=== PATIENT | male | born 1985 | race African-American/Black ===

== ENCOUNTER 2020-05-01 15:59 | Day surgery (SDC) | payer SELFPAY ==
[~2020-05-01 15:59] MED LIST: Acetaminophen 500 MG TAB ONE; Dexamethasone 20 MG/5 ML VIAL ONE; Glycopyrrolate 0.2 MG/ML 5 ML SYRINGE ONE; Ketorolac Tromethamine 30 MG/ML VIAL ONE; Lidocaine 1% PF 5 ML VIAL ONE; Metoclopramide HCl 10 MG/2 ML VIAL ONE; Ondansetron PF 4 MG/2 ML Vial ONE; PROPOFOL 200 MG/20 ML VIAL ONE; Rocuronium Bromide 10 MG/ML (10ML VIAL) ONE; Succinylcholine 200 MG/10 ml SYRINGE FS ONE
[2020-05-01] MEDS ORDERED: Bupivacaine PF 0.5% 30 ML VIAL ONE (16:05)
[2020-05-01] MEDS ORDERED: Lidocaine 1% w/Epinephrine 1:100K 20 ML VIAL ONE (16:05)
[2020-05-01] MEDS ORDERED: Fentanyl 100 MCG/2 ML VIAL ONE ×2 (16:09→17:09)
[2020-05-01] MEDS ORDERED: Midazolam HCl 2 mg/2 ml Vial ONE (16:09)
[2020-05-01] MEDS ORDERED: Sodium Chloride 0.9% 100 ML ONE (16:15)
[2020-05-01] MEDS ORDERED: Piperacillin/Tazobactam 3.375 GM VIAL ONE (16:15)
[2020-05-01] MEDS ORDERED: SUGAMMADEX SODIUM 200 MG/2 ML VIAL ONE (17:31)
--- NOTE | 2020-05-01 17:54 | HP ---
HISTORY OF PRESENT ILLNESS: Mr. Shahid is a 35-year-old black male, works in construction, has had upper abdominal pain, onset yesterday, presenting to [facility], evaluated there, noting to have an exam suggestive of appendicitis. Evaluated, COVID negative. White count 4.9, hemoglobin 15.2. Sodium 141, potassium 3.7, BUN 6, creatinine 0.9, glucose 133. Stent to [facility] for CAT scan, demonstrating changes consistent with appendicitis (Signature CAT scan is not functioning). ALLERGIES: NONE. SOCIAL HISTORY: Tobacco, none. Alcohol, rarely. MEDICATIONS: Metformin. PAST SURGICAL HISTORY: Noncontributory. REVIEW OF SYSTEMS: Noncontributory. FAMILY HISTORY: Noncontributory. PHYSICAL EXAMINATION: VITAL SIGNS: Blood pressure 140/74, respiratory rate 18, heart rate 74. HEAD, EARS, EYES, NOSE, AND THROAT: Unremarkable. LUNGS: Clear to auscultation. CARDIAC: Regular rate and rhythm without murmur or gallop. ABDOMEN: Soft, tenderness in right lower quadrant, guarding and rebound. EXTREMITIES: Unremarkable. No edema. NEUROLOGICAL: Intact. ASSESSMENT AND PLAN: 1. Appendicitis. We have recommended laparoscopic video appendectomy. Risks and benefits discussed. He consents. 2. Type 2 diabetes mellitus. He has intentionally lost 40 pounds and no longer takes insulin. Diabetes is better controlled. Job ID: [id number]
--- NOTE | 2020-05-01 18:04 | OP ---
DATE OF PROCEDURE: 05/01/2020 PREOPERATIVE DIAGNOSIS: Acute appendicitis. POSTOPERATIVE DIAGNOSIS: Acute appendicitis. PROCEDURE PERFORMED: Laparoscopic video appendectomy. ANESTHESIA: General, local 0.5% Marcaine 30 mL mixed with 1% Xylocaine with epinephrine 20 mL. DESCRIPTION OF PROCEDURE: The patient was taken to the operating room, where under general anesthesia, abdomen was prepared with ChloraPrep and draped in routine fashion. Local anesthetic was infiltrated in the skin and subcutaneous tissue about the operative site. Infraumbilical incision made, pneumoperitoneum to 15 mmHg was obtained with a Veress needle, replaced with a 5 port, video laparoscope inserted. Right lateral subcostal incision made and a 5 port placed. Suprapubic incision made and a 12 port placed under laparoscopic visualization. Mesoappendix taken down with LigaSure. The stump of the appendix divided at the cecal stump with Endo-KATALINA blue load stapler. Cecal stump was hemostatic and secured. Appendix placed in endobag and removed. It was acutely inflamed without perforation. Suprapubic fascia approximated with 0 Vicryl. Pelvis and pericecal area irrigated with irrigant and good hemostasis noted. Irrigant and pneumoperitoneum evacuated. All instruments were removed, and all skin incisions were approximated with interrupted subdermal 4-0 Monocryl and Jolivue glue applied. The patient had a Garcia catheter placed at the beginning and removed at the end. He tolerated the procedure well. Job ID: [id number]
== END 2020-05-01 20:03 | disposition home or self-care (01) ==
LOC: SDC 15:59
PROVIDERS: ATTEND Specialist
PROC: 0DTJ4ZZ Resection of Appendix, Percutaneous Endoscopic Approach (ICD-10-PCS; principal; 2020-05-01)
DX: K35.80 Unspecified acute appendicitis (principal); E11.9 Type 2 diabetes mellitus without complications; E66.9 Obesity, unspecified; Z68.35 Body mass index [BMI] 35.0-35.9, adult; Z79.84 Long term (current) use of oral hypoglycemic drugs
CPT/HCPCS: 88304; J1100; J1885; J2250; J2405; J2543; J2704; J2765; J3010; J3490; S0020

== ENCOUNTER 2020-05-01 22:17 | Emergency (ER) | payer OTHER, SELFPAY ==
[2020-05-02 02:09] LABS: SARS-CoV-2 NAA Rapid Test DETECTED (NotDetected)
== END 2020-05-01 22:33 | disposition expired ==
LOC: ERS 22:17
DX: I46.9 Cardiac arrest, cause unspecified (principal); E11.9 Type 2 diabetes mellitus without complications; Z79.4 Long term (current) use of insulin
CPT/HCPCS: 92950; 94760; 96374; 96375; 96376; U0002